=== PATIENT | female | born 1990 | race Caucasian/White ===

== ENCOUNTER 2023-05-04 10:19 | Emergency (ER) | payer OTHER, SELFPAY ==
[2023-05-04 11:08] VITALS: BP 120/81; PULSE 69; RESP 18; TEMP 36.4; O2SAT 97
--- NOTE | 2023-05-04 12:44 | ED.URI ---
HPI - URI/Sore Throat General Chief Complaint: Upper Respiratory Infection Stated Complaint: COUGH Time Seen by Provider: 05/04/23 12:35 Source: patient and RN notes reviewed Mode of arrival: ambulatory Limitations: no limitations History of Present Illness HPI Narrative: Patient presents today with a 3 week history of productive that has been worse over the last 2 days. Denies fever, congestion, rhinorrhea, shortness of breath. She has tried Tylenol and Mucinex without relief. Denies history of asthma or COPD. She is a nonsmoker. Related Data Allergies Allergy/AdvReac Type Severity Reaction Status Date / Time oxycodone Allergy Severe shortness Verified 05/04/23 11:06 of breath Review of Systems Review of Systems: CONSTITUTIONAL: Denies body aches, fever, chills, or sweats. EYES: Denies visual changes, redness, or discharge. ENT: Denies rhinorrhea, congestion, sore throat, or otalgia. CARDIOVASCULAR: Denies chest pain, palpitations, or edema. RESPIRATORY: Denies dyspnea.+ cough GASTROINTESTINAL: Denies abdominal pain, nausea, vomiting, or diarrhea. GENITOURINARY: Denies dysuria or hematuria. SKIN: Denies rash, itching, or wounds. MUSCULOSKELETAL: Denies back pain, joint pain, or myalgia. NEUROLOGIC: Denies headache, numbness, tingling, or weakness. PSYCH: Denies depression or anxiety. PMFSH Past Medical History Medical History Depression Depression Family History Family History Grandparent Depression Diabetes mellitus Social History Social History Smoking status: Never smoker Alcohol intake: current Drinks per week: 1 Substance use: never Substance use type: does not use Comments At time of signature, I have reviewed and agree with nursing past medical, surgical, social and family history unless otherwise noted. Please see nursing chart for further information. There is no relevant family history pertinent to the presenting complaint Exam Narrative: GENERAL: Well-appearing, well-nourished, and in no acute distress. HEAD: Normocephalic, atraumatic. EYES: EOMI. No redness or drainage. Conjunctivae normal. ENT: Mucous membranes pink and moist. Nares clear. No rhinorrhea. TMs normal bilaterally. Throat normal. Uvula midline. NECK: Normal AROM. Supple. No lymphadenopathy. CHEST: No respiratory distress. Slight crackle in the right lower lobe, otherwise clear. Harsh cough noted. HEART: Regular rate and rhythm. No murmur appreciated. Normal peripheral pulses. EXTREMITIES: Normal range of motion. No edema. SKIN: Warm, dry, no rash. Capillary refill normal. Normal skin turgor. NEURO: No focal deficits. Alert and oriented x3. Gait steady. PSYCH: Normal affect. No signs of depression or anxiety. Course Course Level of Care: Express Care Visit Vital Signs Vital signs: Vital Signs Temperature 97.5 F L 05/04/23 11:08 Pulse Rate 69 05/04/23 11:08 Respiratory Rate 18 05/04/23 11:08 Blood Pressure 120/81 05/04/23 11:08 Pulse Oximetry 97 05/04/23 11:08 Oxygen Delivery Room Air 05/04/23 11:08 Temperature 97.5 F L 05/04/23 11:08 Pulse Rate 69 05/04/23 11:08 Respiratory Rate 18 05/04/23 11:08 Blood Pressure 120/81 05/04/23 11:08 Pulse Oximetry 97 05/04/23 11:08 Oxygen Delivery Room Air 05/04/23 11:08 Reviewed. Pt has been instructed to follow up with her PCP regarding her elevated blood pressure today. MDM - URI/Sore Throat Differential Diagnosis Differential diagnosis: Likely upper respiratory infection, bronchitis and other (Pneumonia) Critical Care Time Critical Care Time Critical Care Time: No Discharge Plan Discharge Clinical Impression: Bronchitis Patient Disposition: Home, Self-Care Condition: Stable Instructions: Acute Bronch
== END 2023-05-04 12:49 | disposition home or self-care (01) ==
PROVIDERS: Emergency Provider Nurse Practitioner; PCP Family Medicine
DX: J40 Bronchitis, not specified as acute or chronic (principal)
CPT/HCPCS: 99213; G0463

== ENCOUNTER 2023-07-22 16:35 | Emergency (ER) | payer OTHER, SELFPAY ==
[2023-07-22 16:57] VITALS: BP 126/61; PULSE 70; RESP 16; TEMP 36.3; O2SAT 99
--- NOTE | 2023-07-22 17:33 | ED.URI ---
HPI - URI/Sore Throat General Chief Complaint: Upper Respiratory Infection Stated Complaint: sorethroat Time Seen by Provider: 07/22/23 17:33 Source: patient Mode of arrival: ambulatory Limitations: no limitations History of Present Illness HPI Narrative: 32-year-old female presents with complaint of sore throat, nasal congestion, fatigue, headache, body aches starting yesterday. Afebrile. Reports very little coughing. No chest pain or shortness of breath. Denies nausea vomiting diarrhea. All systems reviewed and negative except as noted above. Related Data Allergies Allergy/AdvReac Type Severity Reaction Status Date / Time oxycodone Allergy Severe shortness Verified 07/22/23 17:23 of breath Review of Systems Review of Systems: CONSTITUTIONAL: Denies fever, chills, or sweats. EYES: Denies visual changes, redness, or discharge. ENT: Reports rhinorrhea, congestion, sore throat. Denies otalgia. CARDIOVASCULAR: Denies chest pain, palpitations, or edema. RESPIRATORY: Denies cough or dyspnea. GASTROINTESTINAL: Denies abdominal pain, nausea, vomiting, or diarrhea. GENITOURINARY: Denies dysuria or hematuria. SKIN: Denies rash or itching. MUSCULOSKELETAL: Denies back pain, joint pain, or myalgia. NEUROLOGIC: Denies headache, numbness, or weakness. PSYCHIATRIC: Denies anxiety or depression. All other systems reviewed are negative, except as documented in HPI. FORMERLY [facility], [facility]–1983 Past Medical History Medical History Depression Depression Family History Family History Grandparent Depression Diabetes mellitus Social History Social History Smoking status: Never smoker Alcohol intake: current Drinks per week: 1 Substance use: never Substance use type: does not use Comments At time of signature, agree with nursing past medical, surgical, social and family history. There is no relevant family history pertinent to the presenting complaint. Exam Narrative: GENERAL: This is a well-nourished, well-developed patient, in no apparent distress. HEAD: normocephalic, atraumatic. EYES: PERRL. Sclera clear/white. Vision is grossly intact. EARS: External ears normal, auditory canals clear and without drainage, TMs normal without perforation. Hearing grossly intact. NOSE: External nose normal with mild congestion no significant redness or erythema to nares. THROAT: Mucous membranes moist, posterior pharynx clear. NECK: Neck supple, non-tender without lymphadenopathy, masses or thyromegaly. CARDIOVASCULAR: Regular rate and rhythm without murmurs, gallops, or rubs. RESPIRATORY: Clear to auscultation. Breath sounds equal bilaterally. No wheezes, rales, or rhonchi. SKIN: warm, Dry, intact with no suspicious lesions or rash, good texture and turgor. NEURO: awake, alert, and oriented to person, place and time. There were no obvious focal neurologic abnormalities. EXTREMITIES: No joint tenderness, effusion, or edema noted. Course Course Level of Care: Express Care Visit Vital Signs Vital signs: Vital Signs Temperature 36.3 C L 07/22/23 16:57 Pulse Rate 70 07/22/23 16:57 Respiratory Rate 16 07/22/23 16:57 Blood Pressure 126/61 07/22/23 16:57 Pulse Oximetry 99 07/22/23 16:57 Oxygen Delivery Room Air 07/22/23 16:57 Temperature 36.3 C L 07/22/23 16:57 Pulse Rate 70 07/22/23 16:57 Respiratory Rate 16 07/22/23 16:57 Blood Pressure 126/61 07/22/23 16:57 Pulse Oximetry 99 07/22/23 16:57 Oxygen Delivery Room Air 07/22/23 16:57 Reviewed MDM - URI/Sore Throat MDM Narrative Medical decision making narrative: negative COVID and strep test. Posterior pharynx normal without erythema, swelling or exudates. Will wait for strep culture prior to treating with antibiotics. Patient agrees with plan o
== END 2023-07-22 18:15 | disposition home or self-care (01) ==
PROVIDERS: Emergency Provider Nurse Practitioner Family; PCP Family Medicine
DX: J06.9 Acute upper respiratory infection, unspecified (principal); Z20.822 Contact with and (suspected) exposure to COVID-19; F32.A Depression, unspecified
CPT/HCPCS: 87081; 87426; 87880; 99213; C9803; G0463

== ENCOUNTER 2023-09-20 12:24 | Emergency (ER) | payer OTHER, SELFPAY ==
--- NOTE | 2023-09-20 12:40 | ED.URI ---
HPI - URI/Sore Throat General Chief Complaint: Upper Respiratory Infection Stated Complaint: sorethroat,congestion Time Seen by Provider: 09/20/23 12:30 Source: patient Mode of arrival: ambulatory Limitations: no limitations History of Present Illness HPI Narrative: Patient is a 33-year-old female who presents with sore throat that started today along with congestion, hoarseness and headache that started this past weekend. Denies any fever, chills, nausea, vomiting, diarrhea. Has been taking ibuprofen. Works with children. Related Data Allergies Allergy/AdvReac Type Severity Reaction Status Date / Time oxycodone AdvReac Intermediate shortness Verified 09/20/23 12:59 of breath Review of Systems Review of Systems: All systems reviewed & are unremarkable except as noted in HPI and below Constitutional: Constitutional: Denies body ache(s), Denies chills, Denies fatigue, Denies fever(s), Reports headache(s), Denies malaise and Denies weakness Eyes: Eyes: Denies blurry vision, Denies itchy eyes and Denies loss of vision ENT: Denies otalgia, Denies headache(s), Reports hoarseness, Reports nasal congestion, Denies sinus pain and Reports sore throat Cardiovascular: Cardiovascular: Denies chest pain, Denies irregular heart rhythm and Denies dyspnea Respiratory: Respiratory: Denies cough and Denies dyspnea Gastrointestinal: Gastrointestinal: Denies abdominal pain, Denies diarrhea, Denies nausea and Denies vomiting Musculoskeletal: Musculoskeletal: Denies back pain, Denies myalgias and Denies arthralgias Integumentary/Breasts: Skin/Breast: Denies pruritus and Denies rash Neurologic: Reports headache(s), Denies loss of vision and Denies weakness Psychiatric: Psychiatric: Reports no additional psychiatric complaints Endocrine: Endocrine: Denies fatigue Allergic/Immunologic: Allergic/Immunologic: Denies itchy eyes PMFSH Past Medical History Medical History Depression Depression Family History Family History Grandparent Depression Diabetes mellitus Social History Social History Smoking status: Never smoker Alcohol intake: current Drinks per week: 1 Substance use: never Substance use type: does not use Comments At time of signature, agree with nursing past medical, surgical, social and family history. There is no relevant family history pertinent to the presenting complaint. Exam Const: General: cooperative, healthy appearing, comfortable, no acute distress and well nourished Nutritional Appearance: well nourished Orientation/consciousness: patient oriented x3 Limitations: no limitations HENMT: Head: normal to inspection, normocephalic and atraumatic Ears: hearing grossly normal bilaterally, external ears normal, TM's normal bilaterally, EAC's normal and no periauricular adenopathy Face/Nose/Sinus: Normal external nose present, Abnormal mucous membranes and turbinates present erythematous bilateral and diffuse, normal facial exam, sinuses nontender and face symmetric Face and sinus: normal facial exam, sinuses nontender and face symmetric Mouth: Yes Normal oral and palatal mucosa present, Yes lip normal, Yes tongue normal, Yes Normal salivary glands and ducts present, Yes oropharynx normal and Yes moist mucous membranes Teeth and gingiva: dentition normal Throat: posterior oropharynx normal, tonsils normal and uvula midline Eyes: General: appearance normal, both eyes and all related structures Alignment and Position: alignment normal and position normal Periorbital: periorbital findings normal Eyelids: eyelids normal Pupils: Equal, round and reactive pupils present Neck: Neck: normal visual inspection, full ROM, no lymphadenopathy and supple Chest: Chest palpation & inspection: normal inspection of the chest and normal palpation
[2023-09-20 12:50] VITALS: BP 129/73; PULSE 74; RESP 16; TEMP 36.3; O2SAT 98
== END 2023-09-20 13:29 | disposition home or self-care (01) ==
PROVIDERS: Emergency Provider Nurse Practitioner Family; PCP Family Medicine
DX: J06.9 Acute upper respiratory infection, unspecified (principal); Z20.822 Contact with and (suspected) exposure to COVID-19
CPT/HCPCS: 87081; 87426; 87804; 87880; 99213; G0463

== ENCOUNTER 2024-02-15 10:12 | Outpatient (CLI) | payer OTHER, SELFPAY ==
[2024-02-15 11:08] LABS: Basophils Percent Auto 0.3 % (0.2-1.2); Eosinophils Percent Auto 0.5 % (0-4.4); Hematocrit 36.1 % (37.0-47.0); Hemoglobin 12.5 g/dL (12.0-15.0); Immature Granulocyte Absolute 0.02 K/mm3 (0.00-0.031); Immature Granulocyte Percent A 0.3 % (0-0.5); Lymphocytes Absolute Auto 1.39 K/mm3 (0.9-3.2); Lymphocytes Percent Auto 23.1 % (18.3-44.2); Mean Corpuscular HGB Conc 34.6 g/dl (32-36); Mean Corpuscular Hemoglobin 31.6 pg (26-34); Mean Corpuscular Volume 91.4 fl (80-100); Mean Platelet Volume 10.6 fl (7.4-10.4); Monocytes Absolute Auto 0.4 K/mm3 (0.1-0.6); Monocytes Percent Auto 6.5 % (2.6-8.5); Neutrophils Absolute Auto 4.2 K/mm3 (1.3-6.7); Neutrophils Percent Auto 69.3 % (45.5-73.1); Platelet Count Result 183 k/mm3 (150-375); Red Blood Count 3.95 M/mm3 (4.2-5.4); Red Cell Distribution Width 12.6 % (11.5-14.5)
[2024-02-15 12:14] LABS: Hepatitis B Surface Antigen Negative (Negative)
[2024-02-15 12:28] LABS: HIV 1/2 Ab P24 Ag Result Negative (Negative)
[2024-02-16 13:46] LABS: Rapid Plasma Reagin Non-Reactive (NonReactive)
[2024-02-16 23:53] LABS: Amphetamines NEGATIVE ng/mL (<500); Barbiturates NEGATIVE ng/mL (<300); Benzodiazepines NEGATIVE ng/mL (<100); Cocaine Metabolite NEGATIVE ng/mL (<150); Marijuana Metabolite NEGATIVE ng/mL (<20); Methadone Metabolite NEGATIVE ng/mL (<100); Opiates NEGATIVE ng/mL (<100); Oxidant NEGATIVE mcg/mL (<200); pH 5.9 (4.5-9.0)
== END 2024-02-15 10:13 | disposition home or self-care (01) ==
LOC: ANHLAB 10:13
PROVIDERS: PCP Family Medicine; Visit Provider Obstetrics & Gynecology
DX: E55.9 Vitamin D deficiency, unspecified (principal); Z34.80 Encounter for supervision of other normal pregnancy, unspecified trimester
CPT/HCPCS: 36415; 80307; 82306; 85025; 86592; 86703; 86762; 86850; 86900; 86901; 87086; 87340; G0432

== ENCOUNTER 2024-06-05 12:28 | Outpatient (CLI) | payer OTHER, SELFPAY ==
[2024-06-05 14:20] LABS: Hematocrit 34.2 % (37.0-47.0); Hemoglobin 11.5 g/dL (12.0-15.0)
[2024-06-05 14:46] LABS: Rapid Plasma Reagin Non-Reactive (NonReactive)
[2024-06-05 15:05] LABS: Glucose 1 Hour PP 50gm Dose 128 mg/dL
[2024-06-05 15:52] LABS: HIV 1/2 Ab P24 Ag Result Negative (Negative)
== END 2024-06-05 12:29 | disposition home or self-care (01) ==
PROVIDERS: PCP Family Medicine; Visit Provider Obstetrics & Gynecology
DX: Z34.80 Encounter for supervision of other normal pregnancy, unspecified trimester (principal); Z3A.00 Weeks of gestation of pregnancy not specified
CPT/HCPCS: 36415; 82947; 85014; 85018; 86592; 86703; G0432

== ENCOUNTER 2024-07-09 17:54 | Outpatient (RCR) | payer OTHER, SELFPAY | END 2024-10-05 16:45 | disposition home or self-care (01) | LOC: ANHOBOP 17:54 | PROVIDERS: PCP Family Medicine; Visit Provider Obstetrics & Gynecology | DX: O36.8190 Decreased fetal movements, unspecified trimester, not applicable or unspecified (principal) | CPT/HCPCS: 59025 ==

== ENCOUNTER 2024-08-30 22:36 | Inpatient (IN) | payer OTHER, SELFPAY ==
[2024-08-31] VITALS (172 sets, daily range): BP systolic 92–148; BP diastolic 49–112; PULSE 60–198; RESP 16–18; TEMP 36.4–37.2; O2SAT 95–100; BMI 40.5
--- NOTE | 2024-08-31 00:38 | LDADM ---
This patient, Rebecca Zuñiga, was admitted to Labor/Delivery/Recovery 107 on 08/30/24 at 22:36. Plans for labor, pain management and were discussed with patient. Patient/family oriented to hospital policies and general routines including ID bracelet, bed and alarms, visiting hours, pain management, procedures, bathroom and other care routines, personal items, smoking policy, room service/diet and guest tray routines, security routines, and visiting hours. Patient/Family are encouraged to report perceived risks to care and to ask questions if they do not understand what they are told or what they should do. See [facility]BIX for further documentation.
[2024-08-31] MEDS: LACTATED RINGERS 1,000 ML 125 ML IV CONT ×2 (00:40→01:46)
[2024-08-31] MEDS: ONDANSETRON INJ 4 MG/2 ML VIAL IV PUSH (00:40)
[2024-08-31 00:49] LABS: Basophils Percent Auto 0.2 % (0.2-1.2); Eosinophils Percent Auto 0.1 % (0-4.4); Hematocrit 33.8 % (37.0-47.0); Hemoglobin 11.6 g/dL (12.0-15.0); Immature Granulocyte Absolute 0.03 K/mm3 (0.00-0.031); Immature Granulocyte Percent A 0.3 % (0-0.5); Lymphocytes Absolute Auto 1.85 K/mm3 (0.9-3.2); Lymphocytes Percent Auto 21.3 % (18.3-44.2); Mean Corpuscular HGB Conc 34.3 g/dl (32-36); Mean Corpuscular Hemoglobin 31.7 pg (26-34); Mean Corpuscular Volume 92.3 fl (80-100); Mean Platelet Volume 11.1 fl (7.4-10.4); Monocytes Absolute Auto 0.6 K/mm3 (0.1-0.6); Monocytes Percent Auto 6.3 % (2.6-8.5); Neutrophils Absolute Auto 6.2 K/mm3 (1.3-6.7); Neutrophils Percent Auto 71.8 % (45.5-73.1); Platelet Count Result 200 k/mm3 (150-375); Red Blood Count 3.66 M/mm3 (4.2-5.4); Red Cell Distribution Width 13.4 % (11.5-14.5); White Blood Count 8.7 K/mm3 (4.5-10.0)
--- NOTE | 2024-08-31 01:18 | P.PNAN_ITS ---
Anes - Eval Pre Procedure Procedure: Labor epidural Date/Time: 08/31/24 01:18 Surgeon: Primo Luevano Preop Diagnosis: Abdominal pain with contractions Pre Op Diagnosis: contractions Patient Data Age: 33 Gender: F Height: 1.73 m Weight: 121 kg Last Vital Signs Pulse 76 08/31/24 01:07 BP 148/84 H 08/31/24 01:07 Pulse Ox 100 08/31/24 01:16 O2 Del Method Room Air 08/31/24 00:46 Allergies Allergy/AdvReac Type Severity Reaction Status Date / Time oxycodone AdvReac Intermediate shortness Verified 08/07/24 13:48 of breath Home Medications ?Medication ?Instructions ?Recorded ?Confirmed ?Type venlafaxine 75 mg capsule,extended 150 mg (2 x 75 mg) PO DAILY #180 04/03/24 08/07/24 Rx release 24 hr caps vitamins-iron fumarate 65 1 tablet PO DAILY 08/07/24 08/07/24 History mg iron-folic acid 1 mg tablet ([facility]) Laboratory Tests 08/31/24 00:42 WBC 8.7 K/mm3 (4.5-10.0) RBC 3.66 L M/mm3 (4.2-5.4) Hgb 11.6 L g/dL (12.0-15.0) Hct 33.8 L % (37.0-47.0) MCV 92.3 fl (80-100) MCH 31.7 pg (26-34) MCHC 34.3 g/dl (32-36) RDW 13.4 % (11.5-14.5) Plt Count 200 k/mm3 (150-375) MPV 11.1 H fl (7.4-10.4) Immature Gran % (Auto) 0.3 % (0-0.5) Neut % (Auto) 71.8 % (45.5-73.1) Lymph % (Auto) 21.3 % (18.3-44.2) [place] % (Auto) 6.3 % (2.6-8.5) Eos % (Auto) 0.1 % (0-4.4) Baso % (Auto) 0.2 % (0.2-1.2) Lymph # (Auto) 1.85 K/mm3 (0.9-3.2) [place] # (Auto) 0.6 K/mm3 (0.1-0.6) Eos # (Auto) 0.0 K/mm3 (0-0.3) Baso # (Auto) 0.0 K/mm3 (0.0-0.1) Abs Immat Gran (auto) 0.03 K/mm3 (0.00-0.031) Absolute Neuts (auto) 6.2 K/mm3 (1.3-6.7) Absolute Nucleated RBC 0.000 K/mm3 (0.0-0.012) Nucleated RBC % 0.0 % (0.0-0.2) RPR Pending HIV 1&2 Ab/P24 Ag 4thGn Pending Blood Type Pending Antibody Screen Pending : gestational age HCG: positive Patient hx anesthesia problems: none Family hx anesthesia problems: none Results Review: All pre-operative results and documents have been reviewed as part of the pre- operative evaluation. [facility] Past Medical History Medical History Anxiety Morbid obesity and not yet delivered Depression Depression Family History Family History Grandparent Diabetes mellitus Depression Breast cancer Mother Breast cancer Social History Social History Smoking status: Never smoker Alcohol intake: current Drinks per week: 1 Substance use: never Substance use type: does not use Do You Feel Safe in your Home?: Yes Lack of Transportation: No Lack of Food: Never True Current Housing: I Have Housing Concerned About Future Housing: No Difficulty Paying Gas/Electric Bills: No Difficulty Paying for Meds: No Currently Unemployed: No Education: Master's Degree or Higher Difficulty w/ Childcare or Family Care: No Spiritual care concerns: No Exam Day of Procedure 08/31/24 01:18 Patient weight: morbidly obese
[2024-08-31 01:20] LABS: Rapid Plasma Reagin Non-Reactive (NonReactive)
[2024-08-31 01:38] LABS: HIV 1/2 Ab P24 Ag Result Negative (Negative)
--- NOTE | 2024-08-31 02:29 | P.HP_ITS ---
H&P: HPI History of Present Illness Date/Time: 08/31/24 02:29 Chief Complaint: labor at term Narrative: this is a [age]-year-old 2 para 0010 whose last menstrual period was 11/24/2023, EDC is 09/03/2024, who presents at39+ weeks gestation in active labor. She is negative for group B strep and her has been uncomplicated she does take venlafaxine 75mg Review of Systems Review of Systems: All systems reviewed & are unremarkable except as noted in HPI and below Constitutional: Constitutional: Denies body ache(s), Denies chills, Denies fatigue, Denies fever(s), Reports headache(s), Denies malaise and Denies weakness Eyes: Eyes: Denies blurry vision, Denies itchy eyes and Denies loss of vision ENT: Denies otalgia, Denies headache(s), Reports hoarseness, Reports nasal con gestion, Denies sinus pain and Reports sore throat Cardiovascular: Cardiovascular: Denies chest pain, Denies irregular heart rhythm and Denies dyspnea Respiratory: Respiratory: Denies cough and Denies dyspnea Gastrointestinal: Gastrointestinal: Denies abdominal pain, Denies diarrhea, Denies nausea and Denies vomiting Musculoskeletal: Musculoskeletal: Denies back pain, Denies myalgias and Denies arthralgias Integumentary/Breasts: Skin/Breast: Denies pruritus and Denies rash Neurologic: Reports headache(s), Denies loss of vision and Denies weakness Psychiatric: Psychiatric: Reports no additional psychiatric complaints Endocrine: Endocrine: Denies fatigue Allergic/Immunologic: Allergic/Immunologic: Denies itchy eyes PMFSH Past Medical History Medical History Anxiety Morbid obesity and not yet delivered Depression Depression Family History Family History Grandparent Diabetes mellitus Depression Breast cancer Mother Breast cancer Social History Social History Smoking status: Never smoker Alcohol intake: current Drinks per week: 1 Substance use: never Substance use type: does not use Do You Feel Safe in your Home?: Yes Lack of Transportation: No Lack of Food: Never True Current Housing: I Have Housing Concerned About Future Housing: No Difficulty Paying Gas/Electric Bills: No Difficulty Paying for Meds: No Currently Unemployed: No Education: Master's Degree or Higher Difficulty w/ Childcare or Family Care: No Spiritual care concerns: No Meds Home Medications and Allergies Home Medications ?Medication ?Instructions ?Recorded ?Confirmed ?Type venlafaxine 75 mg capsule,extended 150 mg (2 x 75 mg) PO DAILY #180 04/03/24 08/07/24 Rx release 24 hr caps vitamins-iron fumarate 65 1 tablet PO DAILY 08/07/24 08/07/24 History mg iron-folic acid 1 mg tablet ([facility]) Allergies Allergy/AdvReac Type Severity Reaction Status Date / Time oxycodone AdvReac Intermediate shortness Verified 08/07/24 13:48 of breath Vital Signs Vital Signs - 24 hr 08/31/24 00:46 08/31/24 00:56 08/31/24 01:01 Pulse Rate Blood Pressure Pulse Oximetry 98 100 Oxygen Delivery Room Air 08/31/24 01:06 08/31/24 01:07 08/31/24 01:11 Pulse Rate 76 Blood Pressure 148/84 H Pulse Oximetry 98 98 Oxygen Delivery 08/31/24 01:16 08/31/24 01:21 08/31/24 01:23 Pulse Rate 60 Blood Pressure 136/74 Pulse Oximetry 100 100 Oxygen Delivery 08/31/24 01:24 08/31/24 01:26 08/31/24 01:29 Pulse Rate 81 83 65 Blood Pressure 136/87 139/85 127/75 Pulse Oximetry 99 Oxygen Delivery 08/31/24 01:31 08/31/24 01:34 08/31/24 01:36 Pulse Rate 60 74 81 Blood Pressure 129/66 125/79 125/75 Pulse Oximetry 99 98 Oxygen Delivery 08/31/24 01:39 08/31/24 01:41 08/31/24 01:43 Pulse Rate 87 81 84 Blood Pressure 132/74 99/85 L 133/73 Pulse Oximetry 99 Oxygen Delivery 08/31/24 01:46 08/31/24 01:49 08/31/24 01:51 Pulse Rate 83 91 81 Blood Pressure 132/69 131/76 124/69 Pulse Oximetry 99 99 Oxygen Delivery 08/31/24 01:54 08/31/24 01:56 08/31/24 01:59 Pulse Rate 90 84 79 Blood Pressure 141/79 H 134/61 135/71 Pulse Oximetry 99 Oxygen Delivery 08/31/24 02:01 08/31/24 02:04 08/31/24 02:06 Pulse Rate 89 84 85 Blood Pressure 138/61 130/68 138/74 Pulse Oximetry 99 98 Oxygen Delivery 08/31/24 02:09 08/31/24 02:11 08/31/24 02:14 Pulse Rate 87 90 75 Blood Pressure 134/65 139/84 145/75 H Pulse Oximetry 100 Oxygen Delivery 08/31/24 02:16 08/31/24 02:19 08/31/24 02:21 Pulse Rate 80 88 80 Blood Pressure 145/74 H 140/78 145/79 H Pulse Oximetry 100 99 Oxygen Delivery 08/31/24 02:24 08/31/24 02:26 Pulse Rate 76 Blood Pressure 139/72 Pulse Oximetry 98 Oxygen Delivery Exam Const: General: cooperative, healthy appearing and comfortable Nutritional Appearance: average body habitus Orientation/consciousness: oriented to person, oriented to place and oriented to time HENMT: Head: normal to inspection Resp: Effort & Inspection: normal respiratory effort Cardio: Rate: regular rate Rhythm: regular rhythm Heart sounds: S1 normal heart sound present and S2 normal heart sound present GI: Inspection: normal to inspection ( soft gravid uterus) : External Female Exam: normal external appearance Speculum Exam - Vagina: normal appearance of the vagina Speculum Exam - Cervix: normal appearance of the cervix ( cervix 4-5 75% effaced -2. FHTs reassuring) H&P: Results Labs Labs: Short CBC 08/31/24 Range/Units 00:42 WBC 8.7 (4.5-10.0) K/mm3 Hgb 11.6 L (12.0-15.0) g/dL Hct 33.8 L (37.0-47.0) % Plt Count 200 (150-375) k/mm3 Assessment and Plan Assessment and plan (1) Term : Code(s): Z34.90 - Encounter for supervision of normal , unspecified, unspecified trimester Status: Acute Plan spontaneous vaginal delivery expected. She is an epidural candidate
--- NOTE | 2024-08-31 03:52 | PM.OBPNLAB ---
Pain Control Date/time seen: 08/31/24 03:52 Pain control: tolerating well and epidural Pelvic Exam Dilation (cm): 7 Effacement (%): 100 station: -2 Amniotic membrane status: Leaking Contractions Monitor mode: External
[2024-08-31] MEDS: OXYTOCIN 30 UNITS/NS 500 ML 30 UNITS/500 ML BAG IV CONT (07:14)
--- NOTE | 2024-08-31 10:30 | PM.OBPNLAB ---
Pain Control Date/time seen: 08/31/24 10:30 Pain control: tolerating well and epidural Pelvic Exam Dilation (cm): 10 Effacement (%): 100 station: -1 Amniotic membrane status: Leaking Contractions Monitor mode: External
--- NOTE | 2024-08-31 12:07 | P.PCNOB_ITS ---
OB - Vaginal Delivery Note Procedure Delivery date: 08/31/24 Induction method: None Delivery augmentation: Pitocin Delivery monitor: External FHT and Internal Uterine Route of delivery: Episiotomy description: None Laceration Description: Perineal - 2nd Degree Delivery repair: vicryl Specimen: No Quantitative Blood Loss (ml): 162 Anesthesia type: Epidural Disposition: Floor Complications: No immediate complications [place] Baby Date of : 08/31/24 Time of : 11:52 Gestational Age by Date: 39 gender: Male presentation: vertex position: Right Occiput Anterior Placenta delivery description: Spontaneous Cord Vessel Description: 3 Vessels, Nuchal Cord, Loose and Reduced score one minute: 8 score five minutes: 9 Narrative: The patient was admitted with spontaneous rupture membranes on admission. She progressed unremarkable 1st stage of labor and epidural anesthesia placed complete when she was complete she pushed delivered head spontaneously in the CHONG position. Anterior posterior shoulder delivered spontaneously after sponge after relieved a nuchal cord x1 cord clamp -0 cut passed off the table given Apgars of 8 [id number]. Cord blood was drawn. Placenta delivered intact spontaneously. Twenty of Pitocin placed in the unit in the IV to help firm the uterus after inspecting the vagina a small second-degree midline laceration was noted this was closed with layered 3-0 Vicryl QBL was 132. All sponge, needle, instrument counts were correct. There were no immediate complications
--- NOTE | 2024-08-31 12:10 | PM.DS ---
DS: Admitting Diagnosis Discharge Date 09/02/2024 Admitting Diagnosis term DS: Discharge Diagnosis Discharge Diagnosis (1) Term : Code(s): Z34.90 - Encounter for supervision of normal , unspecified, unspecified trimester Status: Acute DS: Summary Hospital Course Reason for hospitalization: patient was admitted on 08/30/2024 late p.m. in active labor. She underwent spontaneous vaginal delivery at 11:52 a.m. on 08/31/2024. Hospital Course: The patient's hospital course unremarkable. She remained afebrile. She was up, voiding without difficulty, eating regular diet, ambulating, and generally without complaints. Time Spent with Patient Time attestation: Total time spent providing and/or coordinating discharge services: Exam Const: General: cooperative, healthy appearing and comfortable Nutritional Appearance: average body habitus Orientation/consciousness: oriented to person, oriented to place and oriented to time HENMT: Head: normal to inspection Resp: Effort & Inspection: normal respiratory effort Cardio: Rate: regular rate Rhythm: regular rhythm Heart sounds: S1 normal heart sound present and S2 normal heart sound present GI: Inspection: normal to inspection ( Fundus firm below the umbilicus) DS: Data Data Completed and Pending Labs on day of discharge: Labs from last 24 hours 08/31/24 00:42 WBC 8.7 RBC 3.66 L Hgb 11.6 L Hct 33.8 L MCV 92.3 MCH 31.7 MCHC 34.3 RDW 13.4 Plt Count 200 MPV 11.1 H Immature Gran % (Auto) 0.3 Neut % (Auto) 71.8 Lymph % (Auto) 21.3 Humphreys % (Auto) 6.3 Eos % (Auto) 0.1 Baso % (Auto) 0.2 Lymph # (Auto) 1.85 Humphreys # (Auto) 0.6 Eos # (Auto) 0.0 Baso # (Auto) 0.0 Abs Immat Gran (auto) 0.03 Absolute Neuts (auto) 6.2 Absolute Nucleated RBC 0.000 Nucleated RBC % 0.0 RPR Non-reactive HIV 1&2 Ab/P24 Ag 4thGn Negative Blood Type O Positive Antibody Screen Negative Discharge Plan Discharge Attending physician on discharge: Eduar Oswald Discharging Clinician: Eduar Oswald Patient Disposition: Home, Self-Care Activity: may shower and pelvic rest Diet: regular Wound Care Instructions: follow printed instructions Discharge Instructions: Education: Mom and Baby Guide Given to: Mother Follow-Up: Call your delivering provider's office for an appointment to be seen in: 6 Weeks Mom and baby should come to the [facility] for the follow-up appointment. Appointment Date/Time: September 03, 2024 at 11:00 am What to expect at your follow-up visit: Blood Pressure Check Physical Assessment Call [phone] if you are unable to keep your appointment time. BREAST CARE: * Wear a snug supportive bra. * For engorgement discomfort: Breast Feeding: * Apply warm moist washcloths * Express milk as needed to relieve engorgement * Wear loose clothing * For sore nipples: * Identify correct latch-on * Apply warm moist washcloths before and after nursing * Air dry nipples after nursing * May apply Lansinoh cream to nipples PERINEAL CARE: * Until bleeding stops, use your edward bottle after urinating * Change your pad frequently throughout the day * You may take sitz baths several times a day (fill your bathtub with warm water and soak for 20 minutes.) Do NOT bathe in the water * No tub baths until seen by your physician - You may shower ACTIVITY: * Rest as much as possible. * Do not exercise or lift anything heavier than your baby (such as laundry or other children.) * Avoid stairs or driving as much as possible. * Do not put anything into the vagina. No douching, tampons, or sexual activity until seen by physician. NOTIFY PHYSICIAN IF YOU HAVE ANY QUESTIONS OR IF ANY OF THE FOLLOWING SYMPTOMS OCCUR: * If your vaginal bleeding becomes foul smelling. * If your vaginal bleeding becomes more heavy than a period or if your bleeding changes from pink to bright red. However, you may pass an occasional walnut-sized clot once or twice for the first week . * If you experience a sharp, shooting pain in your calves. * If you discover a hard, reddened area on your breast or if you experience flu-like symptoms. DIET: * Eat regular, well-balanced meals. * Drink plenty of fluids daily. If , drink to thirst. Call or return if temperature above 100.4? F, increased abdominal pain, increased vaginal bleeding or any new problems. Patient Language: [place] Stand Alone Forms: General Discharge Information Follow-up/Referrals: Eduar Oswald MD [Physician] - 6 Weeks Discharge Medications: New ibuprofen 600 mg tablet 600 mg PO Q6H PRN (Reason: cramps) Qty: 30 0RF Continued Mynatal Plus 65 mg iron- 1 mg tablet 1 tablet PO DAILY venlafaxine 75 mg capsule,extended release 24hr 150 mg PO DAILY Qty: 180 4RF Date of admission: 08/30/24 22:36 Primary Care Provider: Rebecca Marquez Admitting Provider: Eduar Oswald Attending physician on admission: Eduar Oswald Condition: Stable
[2024-08-31] MEDS: OXYTOCIN 30 UNITS/NS 500 ML 30 UNITS/500 ML BAG 125 UNITS IV CONT (13:53)
[2024-08-31] MEDS: IBUPROFEN 600 MG TABLET PO ×2 (14:07→21:38)
--- NOTE | 2024-08-31 16:24 | OBPPTRN ---
Patient transferred to post room #285 via (wheelchair). Support person present. Oriented to unit, room, information board, rooming in, admission packet and security measures. Patient verbalizes understanding.
[2024-08-31] MEDS: ACETAMINOPHEN 325 MG TABLET 650 MG PO (17:35)
[2024-08-31] MEDS: DOCUSATE SODIUM 100 MG CAPSULE PO (17:36)
--- NOTE | 2024-08-31 17:54 | PC.NURSE ---
1740. Met with patient to assess and discuss needs related to feeding. Mother states it is her intention to exclusively breastfeed. Encouraged mother to breastfeed 8-12 times in 24 hours (approximately every 2-3 hours), watching for early feeding cues. If is sleepy, unwrap and place baby skin to skin. Mom attempted to latch to the R breast in cross cradle position at this time sleepy and reluctant to latch. Multiple attempts made with no success. We discussed hand expression and how to express milk to feed to baby. Discussed signs that infant is effectively , i.e. sufficient voids and stools, jaundice within normal limits, <10% weight loss from . Mother educated on milk production, supply and demand, and expectations for in the immediate period. Encouraged feeding on demand and feeding durations of 15 minutes or greater. Discussed breast/nipple care with good hand hygiene, signs of a correct latch, listening for infant swallows and documenting feedings on the feeding sheet. Mother instructed to call for assistance if infant will not feed every 3 hours, if there is discomfort with , or if mother has any other questions or concerns. resources provided including the Mom and Baby Guide and name/number on communication board. Mother verbalized understanding. Updated patient?s primary RN with education provided.?
[2024-09-01 01:08] VITALS: BP 115/69; PULSE 82; RESP 16; TEMP 36.9; O2SAT 96
[2024-09-01] MEDS: IBUPROFEN 600 MG TABLET PO ×3 (05:41→20:34)
[2024-09-01 06:24] LABS: Hematocrit 31.7 % (37.0-47.0); Hemoglobin 10.6 g/dL (12.0-15.0)
[2024-09-01 07:30] VITALS: BP 143/85; PULSE 85; RESP 16; TEMP 36.7; O2SAT 98
[2024-09-01] MEDS: MULTIVIT/MIN/PREN/FOL AC/IRON TABLET 1 TAB PO (09:00)
[2024-09-01] MEDS: POLYSACCHARIDE IRON COMPLEX 150 MG CAPSULE PO (09:00)
--- NOTE | 2024-09-01 10:10 | P.PNOB_ITS ---
OB - PN: Subj Subjective Date/time seen: 09/01/24 10:10 Narrative: Pain OK. Would like circumcision for son. OB - PN: Obj Data Labs 09/01/24 06:16 Labs: Laboratory Results - last 24 hr 09/01/24 06:16 Hgb 10.6 L Hct 31.7 L OB - PN A/P Plan Comments: A: PPD#1, doing well. P: Reviewed circ. Routine care. Exam 2 Psych: Other: AVSS ABD soft, nontender, fundus firm EXT nontender
--- NOTE | 2024-09-01 10:15 | PC.NURSE ---
Introductions were made, then consulted with patient to assess needs related to . Discussed with mother her?plans to feed?her and the?experience so far. She is using the nipple shield at each feeding and baby is not able to latch without it yet. She is pumping after some feeds. Reviewed use of shield, running under warm water, and using a small amount of lanolin around rim. Resources provided for inpatient and outpatient services with the feeding sheet, mom/baby guide and name written on the communication board. Mother voiced understanding of information and will call if there is a request for assistance. Reported to the Primary RN.
--- NOTE | 2024-09-01 15:05 | WPDANLDPN2 ---
Anes-Prog Note L&D Date/Time: 09/01/24 15:05 Comfortable throughout: labor and delivery Neuraxial method: epidural Epidural/Spinal procedure site: clean & non-tender Neuro status: Neuro function grossly intact. Cardiovascular status: normal Respiratory status: normal Airway patency: baseline Mental status: baseline Post-Op hydration status: normal Vital Signs: Last Vital Signs Temp 36.7 C 09/01/24 07:30 Pulse 85 09/01/24 07:30 Resp 16 09/01/24 07:30 BP 143/85 H 09/01/24 07:30 Pulse Ox 98 09/01/24 07:30 O2 Del Method Room Air 09/01/24 07:30 Pain score (VAS): 3 I/O: Intake & Output 08/31/24 09/01/24 09/01/24 23:59 07:59 15:59 Intake Total 240 Balance 240 Post-procedural complaints: none Patient feedback: Patient satisfied with anesthetic care.
--- NOTE | 2024-09-01 15:21 | PC.NURSE ---
1445. Mom called out for assistance. She reports infant is very sleepy and reluctant to nurse. last fed at 0930 and was circumcised shortly after. Mom says she has attempted to feed 2 times. We attempted to get infant to latch by undressing the and stimulating him while he was at the breast. We were not successful in getting infant to nurse at this time. Mom had just pumped 7 ml of colostrum at 1330. This RN helped syringe feed the 7 ml to the . took the milk with ease but remained asleep thru feeding. Mom was encouraged to call out for help or questions if needed. She verbalized understanding. Reported to primary RN.
[2024-09-01] MEDS: DOCUSATE SODIUM 100 MG CAPSULE PO (15:41)
[2024-09-01] MEDS: ACETAMINOPHEN 325 MG TABLET 650 MG PO (15:42)
[2024-09-01 20:40] VITALS: BP 126/74; PULSE 76; RESP 16; TEMP 36.3; O2SAT 97
[2024-09-02] MEDS: IBUPROFEN 600 MG TABLET PO ×2 (04:48→11:49)
[2024-09-02] MEDS: ACETAMINOPHEN 325 MG TABLET 650 MG PO ×2 (04:49→11:49)
[2024-09-02 08:25] VITALS: BP 135/78; PULSE 66; RESP 16; TEMP 36.8; O2SAT 98
[2024-09-02] MEDS: MULTIVIT/MIN/PREN/FOL AC/IRON TABLET 1 TAB PO (09:40)
[2024-09-02] MEDS: DOCUSATE SODIUM 100 MG CAPSULE PO (09:40)
--- NOTE | 2024-09-02 12:30 | P.PNOB_ITS ---
OB - PN: Subj Subjective Date/time seen: 09/02/24 12:30 Narrative: Pain OK. Would like to go home. OB - PN: Obj Data Labs 09/01/24 06:16 OB - PN A/P Plan day: 2 Comments: A: PPD#2, doing well. P: Home to f/u 6 weeks. Exam 2 Psych: Other: AVSS ABD soft, nontender, fundus firm EXT nontender
--- NOTE | 2024-09-02 13:25 | PC.NURSE ---
Patient viewed the discharge video Mother & Baby Care, The First Two Weeks . Patient was given the opportunity and encouraged to ask questions. Patient verbalized understanding of information shared and has been given the mother/baby guide for home reference.
--- NOTE | 2024-09-03 11:30 | PC.NURSE ---
Follow up RN requested a feeding assessment for mom and baby due to mom's use of the nipple shield and need for supplementation overnight. Mom states that she isn't able to latch baby without the shield and sometimes he is so 'mad' that she can't get him to latch or even suck on her finger, especially at night. We reviewed trying for a few minutes and then moving on to pumping and supplementing, with extra emphasis on pumping to replace any 'missed' breast feedings to help maintain her milk supply. We also discussed pumping 5-6 times a day with use of the nipple shield. Baby seems to have a preference for the firmer shield or bottle nipple and does take a pacifier also. Discussed with mom that baby may prefer the instant flow of the bottle to the work it takes at the breast. Encouraged mom to pump for a few minutes to start the milk flowing or to give baby a few mLs of pumped milk or formula before trying to put him to breast so that he is more calm. Mom says that at some feedings he will latch to the shield and feed well. Her milk volume has not increased yet and we discussed that she should expect a delcid feeling tomorrow since she will be 4 days . Encouraged mom to call the office for questions or if she would like to make an appointment. We woke baby and attempted to latch in football and cross cradle but we were unable to get a latch. Baby was vigorous and rooting but not coordinated enough to latch and would push back from the breast and cry. Mom has everted nipples that baby should be able to latch to without the shield. Mom was shown the close sandwich hold to make a small bite for baby's mouth. She knows her nipple needs to be far enough into baby's mouth that it stimulates his suck reflex. She works well with him and demonstrates a good attempt at latching. Mom will continue trying to latch and then supplementing as needed. office number given so patient may contact us as needed.
[2024-09-03 11:36] VITALS: PULSE 78; RESP 18; O2SAT 100
== END 2024-09-02 13:55 | disposition home or self-care (01) | DRG 768 ==
LOC: ANHLDR 09-04 09:50 → ANHOB2 09-04 09:50
PROVIDERS: Admitting Provider Obstetrics & Gynecology; PCP Family Medicine; Visit Provider Obstetrics & Gynecology
DX: O99.214 Obesity complicating childbirth (principal); Z37.0 Single live birth; O99.344 Other mental disorders complicating childbirth; O70.20 Third degree perineal laceration during delivery, unspecified; F41.8 Other specified anxiety disorders; E66.01 Morbid (severe) obesity due to excess calories; O69.81X0 Labor and delivery complicated by cord around neck, without compression, not applicable or unspecified; Z3A.39 39 weeks gestation of pregnancy
CPT/HCPCS: 36415; 85014; 85018; 85025; 86592; 86703; 86850; 86900; 86901; A9270; G0432; J2405; J2590; J2795; J7120

== ENCOUNTER 2025-06-11 10:42 | Emergency (ER) | payer OTHER, SELFPAY ==
[2025-06-11 10:57] VITALS: BP 130/75; PULSE 97; RESP 18; TEMP 37.1; O2SAT 100
[2025-06-11 11:15] LABS: EDSTREPNEGPOS1 Positive (Negative)
--- NOTE | 2025-06-11 11:21 | ED.GENADULT ---
HPI - General Adult General Chief complaint: Upper Respiratory Infection Stated complaint: Sore Throat Source: patient Mode of arrival: ambulatory Limitations: no limitations History of Present Illness HPI narrative: Patient presents for evaluation of sore throat since yesterday. She also reports generalized body aches, subjective fever, chills and generally not feeling well. She had some nausea but thinks it was from taking vitamins on an empty stomach. She denies any vomiting or diarrhea. No recent sick contacts to her knowledge. She took ibuprofen for symptoms. She does not smoke. Related Data Home Medications ?Medication ?Instructions ?Recorded ?Confirmed ?Last Taken ?Type vitamins-iron fumarate 65 1 tablet PO DAILY 08/07/24 08/07/24 08/07/24 History mg iron-folic acid 1 mg tablet (Mynatal Plus) Allergies Allergy/AdvReac Type Severity Reaction Status Date / Time oxycodone AdvReac Intermediate shortness Verified 06/11/25 10:43 of breath Review of Systems Review of Systems: CONSTITUTIONAL: Reports subjective fever and chills. Denies chills, or sweats. EYES: Denies visual changes, redness, or discharge. ENT: Reports sore throat. Denies rhinorrhea, congestion,or otalgia. CARDIOVASCULAR: Denies chest pain, palpitations, or edema. RESPIRATORY: Denies cough or dyspnea. GASTROINTESTINAL: Denies abdominal pain, nausea, vomiting, or diarrhea. GENITOURINARY: Denies dysuria or hematuria. SKIN: Denies rash or itching. MUSCULOSKELETAL: Reports generalized body aches NEUROLOGIC: Denies headache, numbness, dizziness, or weakness. PSYCHIATRIC: Denies anxiety or depression. [facility] Past Medical History Medical History Anxiety Morbid obesity and not yet delivered Depression Depression Surgical History Surgical History No pertinent past surgical history Family History Family History Grandparent Diabetes mellitus Depression Breast cancer Mother Breast cancer Social History Social History Smoking status: Never smoker Alcohol intake: current Drinks per week: 1 Substance use: never Substance use type: does not use Do You Feel Safe in your Home?: Yes Lack of Transportation: No Lack of Food: Never True Current Housing: I Have Housing Concerned About Future Housing: No Difficulty Paying Gas/Electric Bills: No Difficulty Paying for Meds: No Currently Unemployed: No Education: Master's Degree or Higher Difficulty w/ Childcare or Family Care: No Spiritual care concerns: No Exam Narrative: GENERAL: Well-appearing, well-nourished, and in no acute distress. HEAD: Normocephalic, atraumatic. EYES: PERRLA and EOMI. ENT: Nares clear, no rhinorrhea or epistaxis. Mucous membranes moist. Oropharynx without tonsillar hypertrophy exudate or other lesions. Bilateral TMs pearly boone nonbulging NECK: Supple. No adenopathy or masses. No carotid bruits or JVD CHEST: Clear to auscultation. No respiratory distress. No wheezes rales or rhonchi HEART: Regular rate and rhythm. No murmur heard. Normal peripheral pulses. ABDOMEN: Soft, nontender, nondistended, normal active bowel sounds. EXTREMITIES: Normal range of motion. No edema. SKIN: Warm, dry, no rash. NEURO: No focal deficits. Alert and oriented x3. PSYCH: Normal mood and affect. Course Course Emergency Course: This is a 34-year-old female who presented for evaluation of sore throat. Rapid strep positive. Will treat with amoxicillin. Increase hydration. [id number] agents for symptom management. Follow up with primary provider. Go to the ER for worsening symptoms. Patient in agreement with plan of care. Level of Care: Express Care Visit Vital Signs Vital signs: Vital Signs Temperature 37.1 C 06/11/25 10:57 Pulse Rate 97 06/11/25 10:57 Respiratory Rate 18 06/11/25 10:57 Blood Pressure 130/75 06/11/25 10:57 Pulse Oximetry 100 06/11/25 10:57 Oxygen Delivery Room Air 06/11/25 10:57 Temperature 37.1 C 06/11/25 10:57 Pulse Rate 97 06/11/25 10:57 Respiratory Rate 18 06/11/25 10:57 Blood Pressure 130/75 06/11/25 10:57 Pulse Oximetry 100 06/11/25 10:57 Oxygen Delivery Room Air 06/11/25 10:57 Medical Decision Making Vital Signs Vital Signs: Vital Signs Temperature 37.1 C 06/11/25 10:57 Pulse Rate 97 06/11/25 10:57 Respiratory Rate 18 06/11/25 10:57 Blood Pressure 130/75 06/11/25 10:57 Pulse Oximetry 100 06/11/25 10:57 Oxygen Delivery Room Air 06/11/25 10:57 Temperature 37.1 C 06/11/25 10:57 Pulse Rate 97 06/11/25 10:57 Respiratory Rate 18 06/11/25 10:57 Blood Pressure 130/75 06/11/25 10:57 Pulse Oximetry 100 06/11/25 10:57 Oxygen Delivery Room Air 06/11/25 10:57 Lab Data Labs: Lab Results 06/11/25 Range/Units 11:10 POC Grp A Strep Screen Positive (Negative) Discharge Plan Discharge Clinical Impression: Strep throat Patient Disposition: Home Condition: Stable Instructions: Antibiotic Form, Strep Throat (ED) Patient Language: [place] Prescriptions: New amoxicillin 500 mg tablet 500 mg PO Q12H Qty: 20 0RF No Action Mynatal Plus 65 mg iron- 1 mg tablet 1 tablet PO DAILY ibuprofen 600 mg tablet 600 mg PO Q6H PRN (Reason: cramps) Qty: 30 0RF venlafaxine 75 mg capsule,extended release 24hr 150 mg PO DAILY Qty: 180 4RF Follow-up/Referrals: Jimmy,MD Rebecca [Primary Care Provider, Family Practice] Time of Disposition: 11:21
--- OUTSIDE RECORDS SUMMARY | 2025-06-11 12:28 | XMS_ITS | Data Portability ---
Author Organization [facility] Address [address] [place] [address] Care Team Providers Care Reporting Process Consultant Name Role Phone STEPHANIE HDZ Primary Care Provider [phone] Assessment Encounter Date Assessment Date Assessment LastModified by Organization Details LastModified Time 02/03/2024 02/03/2024 Patient is ___weeks . Discussed plan. Not available 02/03/2024 11:54:42 Plan of Treatment Reminders Order Date Submit Date Provider Last Modified By Organization Details Last Modified Time Details Appointments None record ed. Lab None record ed. Referral None record ed. Procedures None record ed. Surgeries None record ed. Imaging None record ed. Medication Orders None record ed. Patient TargetsNo targets recorded. Patient InstructionsNo instructions recorded. Reason for Referral None Reported. Results Created Date Observation Date Name Description Value Unit Range Abnormal Flag Note LastModifiedBy Organization Detail LastModifiedTime 02/03/20 24 02/03/2024 CT/GC AND TRICH OMONA S VAGIN STEVE (RRNA ), URINE chlamydia trachomatis, PCR Negati ve negati ve Not Available [facility] (Lab) [address], [place], [address], 02/04/2024 14:04:24 02/03/20 24 02/03/2024 CT/GC AND TRICH OMONA S VAGIN STEVE (RRNA ), URINE neisseria gonorrhoeae, PCR Negati ve negati ve Not Available [facility] (Lab) [address] [place], [address], 02/04/2024 14:04:24 02/03/20 24 02/03/2024 CT/GC AND TRICH OMONA S VAGIN STEVE (RRNA ), URINE trichomonas vaginalis ribosomal RNA (rrna) Negati ve negati ve Not Available [facility] (Lab) [address], [place], [address], 02/04/2024 14:04:24 02/03/20 24 02/03/2024 US, obste tric, 1st trime ster No observ ation record ed. [email or web address] [address], [place], [address], 02/06/2024 08:12:09 Result Notes None recorded. Problems Name Problem SNOMED Code Status Onset Date Resolution Date Notes Provider Name and Address Organization Details Recorded Time Depressiv e disorder [id number] Active venlafaxin e Blade Lamb MD [address], [place], [address], [facility] 4 12:46:17 [id number] Active 2023 [facility] yang, [facility] 4 12:27:02 Problem Notes None recorded. Procedures Surgical History Date Name Laterality Status Provider Name and Address Organization Details Recorded Time 3 Date of Last Pap Smear completed [facility] 02/03/2024 11:59:39 2 procedure on fascia completed [facility] 02/03/2024 11:38:18 Imaging Results None recorded. Procedure Notes None recorded. Medical Equipment None Reported. Allergies No known drug allergies Medications Name Sig Start Date Stop Date Status Note LastModified by Organization Details LastModified Time venlafaxine ER 75 mg capsule,ext ended release 24 hr TAKE 1 CAPSULE BY MOUTH DAILY active Not Available Not Available No t Available meloxicam 15 mg tablet TAKE 1 TABLET BY MOUTH DAILY WITH FOOD. AVOID TAKING ALEVE OR IBUPROFEN WITH THIS MED 02/02 completed Not Available Not Available Not Available prednisone 20 mg tablet TAKE 2 TABLETS BY MOUTH DAILY FOR 5 DAYS 02/02 completed Not Available Not Available Not Available methocarbam ol 750 mg tablet TAKE 1 TO 2 TABLETS BY MOUTH THREE TIMES DAILY NEEDED FOR MODERATE PAIN 02/02 completed Not Available Not Available Not Available prednisone 50 mg tablet TAKE 1 TABLET BY MOUTH DAILY FOR 5 DAYS 02/02 completed Not Available Not Available Not Available doxycycline hyclate 100 mg tablet TAKE 1 TABLET BY MOUTH TWICE DAILY FOR 7 DAYS 02/02 completed Not Available Not Available Not Available active Not Available Not Avai lable Not Available Vitals Date Recorded Body height Body mass index (BMI) Body weight Systolic And Diastolic Provider Name and Address Organization Details Last Updated DateTime 02/03/2024 172.72 cm 35.9 kg/m2 280855.79 932 g 124/79 mm[Hg] Michelle Boyd [facility] 02/03/2024 11:58:32 Social History Question Answer Notes LastModified by Organizat ion Details LastModified Time Tobacco Smoking Status Never Smoker Michelle Boyd null, [facility] 02/03/2024 12:02:08 Are You Blind Or Do You Have Difficulty Seeing? No Information not available 02/03/2024 What Is Your Level Of Caffeine Consumption? None Quit With Information not available 02/03/2024 In The 14 Days Before Symptom Onset, Have You Had Close Contact With A Laboratory-confir med COVID-19 While That Case Was Ill? No Information not available 02/03/2024 In The 14 Days Before Symptom Onset, Have You Had Close Contact With A Person Who Is Under Investigation For COVID-19 While That Person Was Ill? No Information not available 02/03/2024 Have You Been To An Area Known To Be High Risk For COVID-19? No Information not available 02/03/2024 Are You Deaf Or Do You Have Serious Difficulty Hearing? No Information not available 02/03/2024 What Type Of Diet Are You Following? REGULAR Information not available 02/03/2024 What Is The Highest Grade Or Level Of School You Have Completed Or The Highest Degree You Have Received? [id number] Information not available 02/03/2024 Are There Any Guns Present In Your Home? No Information not available 02/03/2024 Do You Use Protection During Sex? No Information not available 02/03/2024 Do You Use Your Seat Belt Or Car Seat Routinely? Yes Information not available 02/03/2024 Are You Sexually Active? Yes Information not available 02/03/2024 Do You Have Smoke And Carbon Monoxide Detectors In Your Home? Yes Information not available 02/03/2024 Do You Use Sunscreen Routinely? Yes Information not available 02/03/2024 Do You Have Difficulty Walking Or Climbing Stairs? No Information not available 02/03/2024 Sex: Female Functional Status Question Answer Note LastModified by Organizat ion Details LastModified Time Do you use any illicit or recreational drugs? No Information not available 02/03/2024 What is your level of alcohol consumption? None Information not available 02/03/2024 Are you currently employed? Yes Information not available 02/03/2024 Are you able to walk independently without assistance or assistive devices? YESWOREST Information not available 02/03/2024 Are you able to care for yourself independently? Yes Information not available 02/03/2024 Do you have difficulty dressing, bathing, grooming, or toileting? No Information not available 02/03/2024 What is your exercise level? Heavy Information not available 02/03/2024 Mental Status Question Answer Note LastModified by Organization D etails LastModified Time Do you feel stressed (tense, restless, nervous, or anxious, or unable to sleep at night)? [id number] Information not available 02/03/2024 Family History Relationship Description Onset Age of this Age Resolved Age Notes LastModified by Organization Details LastModified Time Maternal Grandmother Malignant neoplasm of breast Not available 2023 12:01:23 Paternal Grandmother Malignant neoplasm of breast Not available 2023 12:01:23 Maternal Grandfather Diabetes mellitus Not available 2023 12:01:37 Paternal Grandfather Diabetes mellitus Not available 2023 12:01:37 Paternal Grandfather Malignant neoplasm of lung Not available 2023 12:01:47 Medical History Condition Response Allergies (Food, seasonal, environmental ) N Other N Breast Cancer N Drug/Latex Allergies/Reactions N Blood Transfusion N Dermatologic Disorders N Lung Disease N Defects or Inherited Disease N Breast Problem N Gestational Diabetes N Hematologic disorders N Anesthesia Complications N History of STI N Deep Vein Thrombosis N Polycystic ovary syndrome N Anxiety Disorder N Autoimmune disease N Arthritis N Infertility N Polyps N Acid Reflux (GERD) N History of abnormal pap N Cancer N Stroke N Varicosities N Neurologic/Epilepsy N Endometriosis N High Cholesterol N Headaches N Fibromyalgia N Kidney Disease N Heart Problems N Kidney or Bladder Problems N Thyroid Problems N GI Problems N Eating Disorder N Anemia N Art (IVF or FET) N Psychiatric Illness N Ovarian Cancer N Diabetes N Pulmonary (TB, Asthma) N Hepatitis/Liver Disease N No Past Medical History N Eczema N Urinary Tract Infection N Abuse/Domestic Violence N Asthma N Trauma/Violence N Depression/ depression Y Heart Disease N Pre-Eclampsia N Hypertension N Osteoporosis N Thrombophilias N Gynecological History Statement/Question Response Abnormal Pap N Date of LMP 11/24/2023 On BCP's at Conception? N Was last menstrual period normal Y STIs/STDs N HPV Vaccine N Current Control Method Are cycles usually normal Y Sexually Active? Y Menses Monthly Y Age of first menstrual cycle 13 Date of Last Pap Smear 09/08/2022 Sexual Problems? N LMP Definite Obstetrics History GPAL:G 2 P 0 0 0 0 Past Encounters Encounter ID Performer Location Encounter Start Date Encounter Closed Date Diagnosis/Indication Diagnosis SNOMED-CT Code Diagnosis ICD10 Code Diagnosis IMO Codes Diagnosis Note [id number] MD Christie Motta [address] [address] 02/03/2024 11:15:38 02/03/2024 11:54:58 MD Christie Motta [address] [address] 02/03/2024 11:28:11 02/03/2024 12:50:25 Amenorrhea 93478582 N91.2 this patient is a 33-year-ol d female who presents for amenorrhea . She is a positive test. Ultrasound revealed a 1st trimester gestation. Patient has no complaints . We talked about early care. Talked about genetic screening. We talked about her ultrasound results. We talked about the 12 week ultrasound that has genetic screening components . She was given recommenda tions on exercise, diet, over-the-c ounter medication s. We reviewed her obstetric history. We reviewed her medical history. We reviewed her social history. She will begin routine care at her next visit. spent over 20 minutes Caring for this patient in total. Health Concerns Section Related Observation LastModified by Organization Detai ls LastModified Time None Recorded Concern Status LastModified by Organization Details LastModified Time None Recorded Advance Directives Directive None Recorded Payers Insurance Date Sequence Insurance Name Policy Number Policy Doe Covered Member ID Doe Member ID Guarantor Name 02/23/2024 1 [facility] [id number] Stephanie Zuñiga [id number] Stephanie Zuñiga 02/23/2024 1 [facility] [id number] Stephanie Zuñiga [id number] Stephanie Zuñiga Notes Date Note Type Note Provider Name and Address Organization Details Recorded Time 02/03/2024 text/html Generic HPI TemplateReported by Patient this patient is a 33-year-old female who presents for amenorrhea. She is a positive test. Ultrasound revealed a 1st trimester gestation. Patient has no complaints. We talked about early care. Talked about genetic screening. We talked about her ultrasound results. We talked about the 12 week ultrasound that has genetic screening components. She was given recommendations on exercise, diet, [id number] medications. We reviewed her obstetric history. We reviewed her medical history. We reviewed her social history. She will begin routine care at her next visit. Blade Lamb MD [address], [place], [address], [facility] 02/03/2024 12:47:08 OBGyn Episode Ob Episode Information Episode Created Date Number of Fetuses Patient Bloodtype Patient rh Status Prepregnancy Weight lbs Domestic Partner Domestic Partner Phone Father Name Wind Project Manager Status 02/03/20 24 1 OPEN Fetus Data First Name Last Name Admitted to NICU Weight (g) Sex Living Outcome Pediatric Complications Fetus ID Race Codes Race Delivery Type [id number] Problems Problem Notes Problem Name Start Date End Date Resolution Snomed Code Not e Depressive disorder [id number] venlafaxine Melvin Calculation Initial Melvin Date Initial Exam Date Initial Exam Provider Initial Ultrasound Date Last Menstrual Period Date Ultra Sound Weeks Gestation 08/30/2024 02/03/2024 02/03/2024 11/24/2023 9 Eighteen To Twenty Week Melvin Update Ultra Sound Date Fundal Height At Umbil Quickening Date Ultra Sound Latest Weeks Gestation Final Melvin Confirmed By Final Melvin Confirmed Date Final Melvin Date Ultra Sound Latest Days Gestation 0 [email or web address] 02/03/2024 09/03/19 25 0 Pre-ness Flowsheet Flowsheet Date 02/03/2024 [place]rie Score Blood Edema Fundus Height Fundus Units Glucose Ketones Leukocytes Nitrite Labor Signs Protein Cervic Dilation Cervic Effacement Cervic Station Type Weight in lbs Pre/Post Dialysis Refused Weight 236.981945628241 BP Diastolic BP Location Tested BP Systolic BP Type 79 L arm 124 sitting Fetus Heart Rate Present A 145 Fetus Movement Comments Menstrual History Last Menstrual Date Menses Monthly On Bcp Conception Prior Menses Frequency Hcg Plus Date Menarche Onset Age 0411/24/2023 true Genetic Screening And Infection History Question Response Note Mental Retardation/Autism false Patient's Age Will Be 35 Years Or Older At Estim ated Date of Delivery false Thalassemia (Mexican, Prydeinig, Mediterranean, Or Background): MCV < 80 false Neural Tube Defect (Meningomyelocele, Spina Bifi da, Or Anencephaly) false Congenital Heart Defect false Down Syndrome false Shawn-Sachs (eg, Episcopalian, Cajun, Turkish-Taiwanese) f alse Van Disease false Sickle Cell Disease Or Trait () false Hemophilia Or Other Blood Disorders false Muscular Dystrophy false Cystic Fibrosis false [place]'s Chorea false Intellectual Disability/Autism false If Yes, Was Person Tested For Fragile X? false Other Inherited Genetic Or Chromosomal Disorder false Maternal Metabolic Disorder (eg, Type 1 Diabetes , PKU) false Patient Or Baby's Father Had A Child With Defects Not Listed Above false Recurrent Loss, Or A Stillbirth false Medications (including Suppl ements, Vitamins, Herbs, OTC Drugs), Illicit/Recreational Drugs, Alcohol false If Yes, Agent(s) And Strength/Dosage false Any Other Genetic History false Live With Someone With TB Or Exposed To TB false Patient Or Partner Has History Of Genital Herpes false Rash Or Viral Illness Since Last Menstrual Perio d false History Of STD, Gonorrhea, Chlamydia, HPV, Syphi lis false Other Infection History false History of HIV false History of Hepatitis false Prior GBS-infected child false Hemoglobinopathy Or Carrier false Other Structural Defect false Recent Travel History Outside of Country false Delivery Information Delivery Date Delivery Type Labor Anesthesia Weeks Gestation Incision Type Labor Labor Length Hrs Delivered By Post Complications Tubal Sterilization Discharge Date Comments Discharge Information Feeding Method Contraceptive Method Maternal HG B and HCT Levels
== END 2025-06-11 11:26 | disposition home or self-care (01) ==
PROVIDERS: Emergency Provider Nurse Practitioner; PCP Family Medicine
DX: J02.0 Streptococcal pharyngitis (principal)
CPT/HCPCS: 87880; 99213; G0463